=== PATIENT | female | born 1985 | race Two or more races ===

== ENCOUNTER 2023-02-24 17:20 | Emergency (ER) | payer OTHER ==
[~2023-02-24] VITALS: Ht 167.6 cm; Wt 84.8 kg
[2023-02-24] MEDS ORDERED: OBSTETRIX ONE 38-1-2 (17:41)
== END 2023-02-25 03:20 | disposition home or self-care (01) ==
LOC: ER 17:20
PROVIDERS: General Practice
DX: O26.892 Other specified pregnancy related conditions, second trimester (principal); K52.89 Other specified noninfective gastroenteritis and colitis; Z3A.18 18 weeks gestation of pregnancy

== ENCOUNTER 2023-07-01 13:10 | Inpatient (IN) | payer OTHER ==
[~2023-07-01] VITALS: Ht 167.6 cm; Wt 88.9 kg
[~2023-07-01 13:10] MED LIST: OBSTETRIX ONE 38-1-2
[2023-07-07] MEDS ORDERED: PRENATAL CAPLE1 EAC1 PO (07:06)
[2023-07-07 08:07] LABS: PH,URINE 5.5 (5.0-8.0); URINE APPEARANCE Cloudy; URINE BILIRRUBIN Negative (NEGATIVE); URINE BLOOD Negative; URINE COLOR Yellow; URINE LEUKOCYTE Negative; URINE NITRATE Negative; URINE PROTEIN Trace (NEGATIVE); URINE UROBILINOGEN 0.2 E.U./dl
[2023-07-07 08:15] LABS: URINE BACTERIA 7034.4 uL (0.0-1933); URINE EPITHELIAL CELLS 117.6 uL (0.0-38.8); URINE RBC 9.1 uL (0.0-20.8); URINE WBC 56.7 uL (0.0-23.2)
[2023-07-07 08:43] LABS: INR < 0.93; PARTIAL THROMBOPLASTIN TIME 26.4 SECONDS (22.0-34.0); PROTHROMBIN TIME 9.7 SECONDS (9.0-11.5)
[2023-07-07 08:45] LABS: HEMOGLOBIN 13.6 g/dL (12.0-15.00); MEAN CELL VOLUME 91.3 fL (80.00-100.00); MEAN CORPUSCULAR HEMOGLOBIN 31.1 pg (27.00-32.0); MEAN CORPUSCULAR HGB CONC 34.1 g/dl (32.0-36.0); PLATELET COUNT 184 K/uL (150-450); RED BLOOD COUNT 4.38 M/uL (4.00-6.00); RED CELL DISTRIBUTION WIDTH 14.5 % (11.5-14.5)
[2023-07-07 09:17] LABS: BILIRUBIN TOTAL 0.39 mg/dL (0.3-1.2); CALCIUM 8.9 mg/dL (8.5-10.1); CREATININE SERUM 0.61 mg/dL (0.55-1.02); GFR 111.61; GLOBULINA 3.9 G/DL (2.4-3.5); POTASSIUM 3.79 mEq/L (3.5-5.1); TOTAL PROTEIN 6.9 gm/dL (6.4-8.2)
[2023-07-07 09:22] LABS: URINE GLUCOSE 250 MG/DL (NEGATIVE)
[2023-07-07 09:23] LABS: URINE YEAST FEW /hpf
[2023-07-07 09:43] LABS: ABG PH 7.345 (7.35-7.45); ABG pCO2 40.9 mmHg (35-45)
[2023-07-07 09:44] LABS: BASE EXCESS -3.6 mmol/l; BICARBONATE 21.8 mmol/l (23-25); SaO2 58.6 %; Tco2 23.1 mmol/l; o2 21 %
== END 2023-07-09 12:36 | disposition home or self-care (01) | DRG 807 ==
LOC: LDR 07-07 06:17 → OB/GYN 07-07 08:39
PROVIDERS: Obstetrics & Gynecology; ADMIT Obstetrics & Gynecology Maternal & Fetal Medicine; ATTEND Obstetrics & Gynecology Maternal & Fetal Medicine
PROC: 10E0XZZ Delivery of Products of Conception, External Approach (ICD-10-PCS; principal; 2023-07-07)
PROC: 0KQM0ZZ Repair Perineum Muscle, Open Approach (ICD-10-PCS; 2023-07-07)
PROC: 4A1HXCZ Monitoring of Products of Conception, Cardiac Rate, External Approach (ICD-10-PCS; 2023-07-07)
DX: O70.1 Second degree perineal laceration during delivery (principal); Z37.0 Single live birth; Z3A.37 37 weeks gestation of pregnancy; Z20.822 Contact with and (suspected) exposure to COVID-19